=== PATIENT | female | born 1940 | race Caucasian/White ===

== ENCOUNTER 2017-03-14 14:25 | Emergency (ER) | payer OTHER, MEDICARE ==
[~2017-03-14] VITALS: Ht 154.9 cm; Wt 99.3 kg
[2017-03-14] MEDS ORDERED: SYNTHROID150 MCG PO (18:09)
[2017-03-14] MEDS ORDERED: LOSARTAN-HCTZ1 EACH PO (18:09)
[2017-03-14] MEDS ORDERED: FEMARA2.5 MG PO (18:12)
[2017-03-14] MEDS ORDERED: PRILOSEC20 MG PO (18:13)
[2017-03-14] MEDS ORDERED: ALLERGY RELIEF180 MG PO (18:14)
[2017-03-14] MEDS ORDERED: CALTRATE 600 WI1 TAB PO ×2 (18:14→18:18)
[2017-03-14] MEDS ORDERED: TOPROL XL25 MG PO (18:27)
== END 2017-03-14 15:35 | disposition short-term general hospital (02) ==
LOC: ER 14:25
PROC: 0HQFXZZ Repair Right Hand Skin, External Approach (ICD-10-PCS; principal; 2017-03-14)
DX: S61.411A Laceration without foreign body of right hand, initial encounter (principal); Y92.69 Other specified industrial and construction area as the place of occurrence of the external cause; Y99.0 Civilian activity done for income or pay; Z88.0 Allergy status to penicillin; Z88.8 Allergy status to other drugs, medicaments and biological substances; Z88.4 Allergy status to anesthetic agent; W22.8XXA Striking against or struck by other objects, initial encounter